=== PATIENT | female | born 1965 | race Caucasian/White ===

== ENCOUNTER 2019-09-29 17:59 | Emergency (ER) | payer BC ==
[~2019-09-29] VITALS: Ht 160 cm; Wt 44.0 kg
[2019-09-29 18:26] VITALS: BP 113/67
--- NOTE | 2019-09-29 18:40 | NUR ---
SEEN AND EXAMINED BY SAVANNAH ROWLAND
[2019-09-29] MEDS ORDERED: TDAP [DIPH/PERTUSSIS/TET] 0.5 ML VIAL IM ONE ×2 (18:52→19:00)
--- NOTE | 2019-09-29 19:05 | NUR ---
WOUND CARE DONE BY ONLINE MARKETING ANALYST.
--- NOTE | 2019-09-29 19:10 | NUR ---
Patient discharged to home in stable condition. Written and verbal after care instructions given. Patient verbalizes understanding of instruction.
== END 2019-09-29 19:12 | disposition home or self-care (01) ==
LOC: ER 18:01
DX: S81.831A Puncture wound without foreign body, right lower leg, initial encounter (principal); W54.0XXA Bitten by dog, initial encounter; Y93.89 Activity, other specified; Y92.89 Other specified places as the place of occurrence of the external cause; Y99.8 Other external cause status
CPT/HCPCS: 90715